=== PATIENT | male | born 1970 | race Caucasian/White ===

== ENCOUNTER 2022-09-14 18:31 | Emergency (ER) | payer BC ==
[~2022-09-14] VITALS: Ht 172.7 cm; Wt 95.3 kg
[2022-09-14 18:38] VITALS: BP_SYST 119
--- NOTE | 2022-09-14 18:43 | NUR ---
Patient triaged and placed in waiting room. VSS and patient appears in no acute distress at this time. Accompanied by FAMILY, awaiting available bed, and MD notified of need for MSE.
--- NOTE | 2022-09-14 18:50 | NUR ---
ER at bedside examining patient.
[2022-09-14] MEDS ORDERED: DICYCLOMINE HCL 10 MG CAPSULE PO ONE (21:30)
[2022-09-14] MEDS ORDERED: IBUPROFEN 600 MG TABLET PO ONE (21:30)
[2022-09-14] MEDS ORDERED: ONDANSETRON 4 MG ODT TAB PO ONE (21:30)
[2022-09-14] MEDS ORDERED: ACETAMINOPHEN 500 MG TABLET PO ONE (21:30)
[2022-09-14] MEDS ORDERED: ONDA-8 TL (21:35)
[2022-09-14] MEDS ORDERED: DICY10CA13 PO (21:35)
--- NOTE | 2022-09-14 22:07 | NUR ---
Patient given written and verbal discharge instructions and verbalizes understanding. ER MD discussed with patient the results and treatment provided. Patient in stable condition. ID arm band removed. Rx of ZOFRAN AND DICYCLOMINE given. Patient educated on pain management and to follow up with PMD. Opportunity for questions provided and answered. Medication side effect fact sheet provided.
[2022-09-14 22:08] VITALS: BP_SYST 119
== END 2022-09-14 22:08 | disposition home or self-care (01) ==
LOC: SED 18:31
DX: A08.4 Viral intestinal infection, unspecified (principal); E11.9 Type 2 diabetes mellitus without complications; Z79.899 Other long term (current) drug therapy
CPT/HCPCS: 99284; Q0162